=== PATIENT | female | born 1970 | race Caucasian/White ===

== ENCOUNTER → 2017-01-15 | Outpatient (CLI) | payer MEDICARE, MEDICAID ==
--- NOTE | 2017-01-15 17:44 | RAD ---
Abdominal ultrasound complete 01/15/2017 Indication: Right upper quadrant and epigastric pain. Comparison: None. Findings: Visualized pancreatic body within normal limits. Zimmerman scale evaluation of the abdominal aorta and IVC unremarkable. Main portal vein is patent with normal direction of flow measuring 21 cm/s. Common bile duct is normal in size measuring 4 mm. No intra or extrahepatic biliary ductal dilatation Visualized hepatic parenchyma is homogeneous in echotexture without suspicious focal mass or fluid collection. Right kidney is present measuring up to 11.8 cm in length without collecting system dilatation, abnormal perinephric fluid collection or suspicious contour deforming lesion. Left kidney is not as well visualized due to lack of acoustic window measuring up to 11.5 cm in length without collecting system dilatation, though evaluation of contour deforming mass cannot be performed due to limitations. Spleen normal in size measuring 8.8 cm. Prior cholecystectomy. Impression: No sonographic etiology for reported right upper quadrant and epigastric pain.
== END | disposition home or self-care (01) ==
LOC: US 09:36
PROVIDERS: ATTEND General Practice
DX: R10.11 Right upper quadrant pain (principal); R25.2 Cramp and spasm; Z90.49 Acquired absence of other specified parts of digestive tract
CPT/HCPCS: 76700

== ENCOUNTER 2017-02-07 16:44 | Emergency (ER) | payer MEDICARE, MEDICAID ==
[~2017-02-07] VITALS: Ht 154.9 cm; Wt 92.1 kg
[2017-02-07 16:55] VITALS: BP 107/60
[2017-02-07] MEDS ORDERED: PENI500T PO (17:04)
[2017-02-07] MEDS ORDERED: IBUP400T18 PO (17:04)
[2017-02-07] MEDS ORDERED: HYDR-2758 PO (17:04)
--- NOTE | 2017-02-07 17:05 | PHYS DOC ---
Adult General Chief Complaint Chief Complaint: DENTAL PROBLEM HPI HPI 46-year-old female presenting with dental pain in the left upper tooth. It is mild/moderate intermittent nonradiating without alleviating or exacerbating factors. ROS negative for chest pain shortness of breath nausea vomiting fevers chills stridor cyanosis lethargy or drooling. All other review of systems is negative unless otherwise noted in history of present illness. ED course: 46-year-old female presenting to the emergency department today with left dental pain. No evidence of deeper abscess formation. No evidence of peritonsillar abscess. No swelling of the tongue. I recommended patient follow- up with the dentist on Thursday. The patient was prescribed a few oral pain medication and penicillin and subsequent discharged home in stable condition. Review of Systems Review of Systems SEE ABOVE Physical Exam Physical Exam Constitutional: Well developed, well nourished, no acute distress, non-toxic appearance. [] HENT: Normocephalic, atraumatic, bilateral external ears normal, oropharynx moist, no oral exudates, nose normal. [] Generally poor dentition with obvious cavities in the upper back teeth. No stridor or abscess formation. Patient is tolerating secretions without difficulty. Eyes: PERRLA, EOMI, conjunctiva normal, no discharge. [] Neck: Normal range of motion, no tenderness, supple, no stridor. [] Cardiovascular:Heart rate regular rhythm, no murmur [] Lungs & Thorax: Bilateral breath sounds clear to auscultation [] Abdomen: Bowel sounds normal, soft, no tenderness, no masses, no pulsatile masses. [] Skin: Warm, dry, no erythema, no rash. [] Back: No tenderness, no CVA tenderness. [] Extremities: No tenderness, no cyanosis, no clubbing, ROM intact, no edema. [] Neurologic: Alert and oriented X 3, normal motor function, normal sensory function, no focal deficits noted. [] Psychologic: Affect normal, judgement normal, mood normal. [] EKG EKG [] Radiology/Procedures Radiology/Procedures [] Course & Med Decision Making Course & Med Decision Making Pertinent Labs and Imaging studies reviewed. (See chart for details) [] Dragon Disclaimer Dragon Disclaimer This chart was dictated in whole or in part using Voice Recognition software in a busy, high-work load, and often noisy Emergency Department environment. It may contain unintended and wholly unrecognized errors or omissions. Departure Departure: Impression: Primary Impression: Dental cavity Disposition: HOME, SELF-CARE Condition: STABLE Referrals: MERRILL TSAI DO (PCP) Patient Instructions: Dental Pain Additional Instructions: Thank you for allowing us to participate in your care today. Followup with a dentist on Thursday. Call your Primary Doctor tomorrow and inform them of your visit today. If you do not have a primary care provider you can ask for a list of our primary care providers. Return to the emergency department you have any new or concerning findings. This should be evaluated by the primary care physician and any necessary consulting services for continued management within a few days after discharge. Return to emergency room if you have any new or concerning symptoms including but not limited to fever, chills, nausea, vomiting, intractable pain, any new rashes, chest pain, shortness of air, uncontrolled bleeding, difficulty breathing, and/or vision loss. You may have been prescribed medication that can change in your level of thinking and ability to operate machinery. These medications include hydrocodone and Ativan. Also, Benadryl has been known to do this as well. Be sure to check with your pharmacist and ask if the medications you've prescribed can affect your level of consciousness. I recommend not operating heavy machinery or driving while on medication such as these. Scripts Penicillin V Potassium (PENICILLIN V POTASSIUM) 500 Mg Tablet 1 TAB PO BID, #10 TAB 0 Refills Prov: HELIO JACOBSEN MD 02/07/17 Ibuprofen (IBUPROFEN) 400 Mg Tablet 1 TAB PO PRN Q8HRS Y for PAIN, #20 TAB Prov: HELIO JACOBSEN MD 02/07/17 Hydrocodone Bit/Acetaminophen (HYDROCODONE-APAP 5-325 ) 1 Each Tablet 1 TAB PO PRN Q6HRS Y for PAIN, #10 TAB 0 Refills Prov: HELIO JACOBSEN MD 02/07/17 HELIO JACOBSEN MD Feb 07, 2017 17:05
== END 2017-02-07 17:30 | disposition home or self-care (01) ==
LOC: ER 16:44
DX: K02.9 Dental caries, unspecified (principal)
CPT/HCPCS: 99283

== ENCOUNTER → 2018-09-20 | Outpatient (CLI) | payer OTHER, MEDICAID ==
[~2018-09-20] MED LIST: HYDR-2155 PO; IBUP400T18 PO; PENI500T PO
--- NOTE | 2018-09-21 15:18 | RAD ---
DATE: 09/20/2018 EXAM: MAMMO RAUDEL SCREENING BILATERAL HISTORY: Routine screening COMPARISON: 05/01/2017 This study was interpreted with the benefit of Computerized Aided Detection (CAD). Breast Density: SCATTERED The breast parenchyma shows scattered fibroglandular densities. Breast parenchyma level B. FINDINGS: 2-D and 3-D tomosynthesis imaging was performed in CC and MLO projections. No new or enlarging breast densities are seen. No suspicious microcalcifications are evident. IMPRESSION: Stable mammograms without evidence of malignancy. BI-RADS CATEGORY: 1 NEGATIVE RECOMMENDED FOLLOW-UP: 12M 12 MONTH FOLLOW-UP PQRS compliance statement: Patient information was entered into a reminder system with a target due date for the next mammogram. Mammography is a sensitive method for finding small breast cancers, but it does not detect them all and is not a substitute for careful clinical examination. A negative mammogram does not negate a clinically suspicious finding and should not result in delay in biopsying a clinically suspicious abnormality. "Our facility is accredited by the [employer] Mammography Program."
== END | disposition home or self-care (01) ==
LOC: MAMMO 10:31
PROVIDERS: ATTEND Registered Nurse
DX: Z12.31 Encounter for screening mammogram for malignant neoplasm of breast (principal)
CPT/HCPCS: 77063; 77067

== ENCOUNTER → 2018-09-22 | Outpatient (CLI) | payer OTHER, MEDICAID ==
--- NOTE | 2018-09-22 14:43 | RAD ---
EXAM: Left foot, 2 views. HISTORY: Pain after wearing 2 different shoes. COMPARISON: None. FINDINGS: 2 views of the left knee are obtained. There is no fracture, dislocation or subluxation. There is no significant joint effusion. There is minimal medial compartment spurring. There is slight deformity of the lateral aspect of the lateral femoral condyle, possibly projectional or the sequela of remote injury. IMPRESSION: No acute osseous finding. Electronically signed by: Evelyn Gordon MD (09/22/2018 2:40 PM) [facility]
--- NOTE | 2018-09-22 14:49 | RAD ---
EXAM: Cervical spine, 4 views. HISTORY: Pain. COMPARISON: None. FINDINGS: 4 views of the cervical spine are obtained. There is mild cervical kyphosis. There is no listhesis. The vertebral cortez are normal in height. There is anterior predominant endplate remodeling at the mid and lower cervical levels. IMPRESSION: 1. Mild multilevel degenerative change and mild cervical kyphosis. 2. No acute osseous finding. Electronically signed by: Evelyn Gordon MD (09/22/2018 2:47 PM) [place] [id number]
== END | disposition home or self-care (01) ==
LOC: RAD 14:19
PROVIDERS: ATTEND Registered Nurse
DX: M21.862 Other specified acquired deformities of left lower leg (principal); M47.892 Other spondylosis, cervical region; M40.292 Other kyphosis, cervical region
CPT/HCPCS: 72040; 73560

== ENCOUNTER → 2019-07-20 | Outpatient (CLI) | payer OTHER, MEDICAID ==
--- NOTE | 2019-07-20 15:32 | RAD ---
PA and lateral chest x-ray without comparison for cough. FINDINGS: The lungs are clear. The cardiomediastinum is grossly unremarkable. No significant soft tissue or osseous abnormalities are seen. IMPRESSION: 1. No acute cardiopulmonary abnormality. Electronically signed by: Oswaldo Atkins MD (07/20/2019 3:29 PM) [facility]
== END | disposition home or self-care (01) ==
LOC: PMG 14:37
PROVIDERS: ATTEND Registered Nurse
DX: R06.02 Shortness of breath (principal)
CPT/HCPCS: 71046

== ENCOUNTER 2019-11-15 14:53 | Emergency (ER) | payer MEDICARE, MEDICAID ==
[~2019-11-15] VITALS: Ht 154.9 cm; Wt 105.5 kg
[2019-11-15 15:05] VITALS: BP 113/65
[2019-11-15] MEDS ORDERED: LIDOCAINE 2%/EPI 1:100,000 20 ML VIAL. IJ ONE (15:15)
[2019-11-15] MEDS ORDERED: CEPHALEXIN 250 MG CAPSULE PO ONE (15:15)
[2019-11-15] MEDS ORDERED: NEOMY/BACITR/POLYMYXIN OINT PACKET. TP ONE (15:15)
[2019-11-15] MEDS ORDERED: DIPH,PERTUSS(ACELL),TET VAC/PF 0.5 ML SYRINGE. VAX IM ONE (15:30)
[2019-11-15] MEDS ORDERED: CEPH-264 PO (16:45)
--- NOTE | 2019-11-15 16:45 | PHYS DOC ---
Past History Past Medical History: Arthritis, Bipolar, Gallstones, Hypothyroid, Schizophrenia, Other Additional Past Medical Histor: NEUROPATHY Past Surgical History: Cholecystectomy, Smoking: Cigarettes, Less than 1pk/day Additional Smoking Information: PACK/DAY Alcohol Use: None Drug Use: Marijuana General Adult EDM: Chief Complaint: SKIN PROBLEM HPI: HPI: 49 year old female presents with abscess to left buddhism region which has progressed over last 6-7 days. Reports was recently started on Bactrim for a bscess and unrelated UTI. Reports symptoms have continued and worsened despite antibiotic therapy. Denies fever/chills. Denies trauma. Denies . Reports was seen by [facility] with PCP, who instructed patient to present to the ED for evaluation and treatment. Review of Systems: Review of Systems: Constitutional: Denies fever or chills Eyes: Denies redness or discharge HENT: Denies nasal congestion or sore throat Respiratory: Denies cough or shortness of breath Cardiovascular: Denies chest pain or palpitations GI: Denies abdominal pain, nausea, vomiting, or diarrhea : Denies dysuria or hematuria Musculoskeletal: Denies back pain or joint pain Integument: Reports skin lesion to left buddhism with swelling Neurologic: Denies headache, focal weakness or sensory changes Psychiatric: Denies depression or anxiety Complete systems were reviewed and found to be within normal limits, except as documented in this note. Current Medications: Current Meds: Current Medications Medications (Trade) Dose Ordered Sig/Elliott Start Time Stop Time Status Last Admin Dose Admin Cephalexin HCl (Keflex) 500 mg 1X ONCE 11/15/19 15:15 11/15/19 15:16 DC 11/15/19 15:24 500 MG Diphtheria/ Pertussis/Tetanus Vacc (ADACEL TDap SYRINGE) 0.5 ml ONCE ONCE 11/15/19 15:30 11/15/19 15:31 DC 11/15/19 15:33 0.5 ML Lidocaine/ Epinephrine (Xylocaine 2%-Epi 1:100,000) 20 ml 1X ONCE 11/15/19 15:15 11/15/19 15:16 DC 11/15/19 15:15 20 ML Neomycin/ Polymyxin/ Bacitracin (Triple Antibiotic Ointment) 1 pkt 1X ONCE 11/15/19 15:15 11/15/19 15:16 DC 11/15/19 15:25 1 PKT Allergies: Allergies: Allergies Coded Allergies Type Severity Reaction Last Updated Verified haloperidol Allergy Unknown 02/07/17 Yes Physical Exam: PE: Constitutional: Well developed, well nourished, no acute distress, non-toxic appearance HENT: Normocephalic, atraumatic Eyes: Conjunctiva normal, no discharge Neck: Normal range of motion, no tenderness, supple Cardiovascular: Heart rate normal, regular rhythm Lungs & Thorax: No respiratory distress, equal chest rise and fall Skin: Warm, dry, no erythema, no rash, left buddhism abscess measuring 2cm which is fluctuant and tender to palpation concerning for abscess. Extremities: No tenderness, ROM intact, no edema Neurologic: Alert and oriented X 3, normal motor function, normal sensory function, no focal deficits noted Psychologic: Affect normal, judgement normal Current Patient Data: Vital Signs: Vital Signs Date Time Temp Pulse Resp B/P (MAP) Pulse Ox O2 Delivery O2 Flow Rate FiO2 11/15/19 15:05 97.5 90 20 113/65 (81) 96 EKG: EKG: [] Radiology/Procedures: Radiology/Procedures: [] Course & Med Decision Making: Course & Med Decision Making Patient presents with abscess to left buddhism with report of failed outpatient therapy. I&D performed. Wound copiously irrigated. Empiric antibiotic ointment and sterile dressing applied. Patient stable for discharge home with outpatient follow-up with PCP. Discussed findings and plan with patient, who acknowledges understanding and agreement. Mirta Disclaimer: Mirta Disclaimer: This electronic medical record was generated, in whole or in part, using a voice recognition dictation system. Incision and Drainage Incision and Drainage : Blade Size: 11 I & D Procedure: sterile drapes applied, sterile dressing applied Progress Verbal consent obtained. Time out performed. Hand hygiene utilized. Wound cleaned with ChloraPrep. Anesthesia obtained with infiltration of Lidocaine 2% with epi x 3mls via 25g hypodermic needle. 11 blade laceration performed with drainage of purulent material. A curved Palmira clamp then utilized to explore wound and break down any loculations. Wound then copiously irrigated. Finally, wound applied with triple antibiotic ointment and sterile dressing. Patient tolerated procedure well and without difficulty. Departure Departure: Impression: Primary Impression: Abscess of forehead Disposition: 01 HOME/RESIDENCE PRIOR TO ADM Condition: STABLE Referrals: NILAY,WILLOW N [facility]IST-C (PCP) Patient Instructions: Abscess, [id number], Incision and Drainage, Care After Additional Instructions: Do not soak your wound. You may shower. Clean wound daily with soap and water. Change dressing 2 times daily. Use over the counter antibiotic ointment with each dressing change. Scripts Cephalexin (KEFLEX) 500 Mg Capsule 1 CAP PO QID for Abscess for 7 Days, #28 CAP 0 Refills Prov: TOYA UPTON DO 11/15/19 TOYA UPTON DO November 15, 2019 16:45
== END 2019-11-15 16:45 | disposition home or self-care (01) ==
LOC: ER 14:53
DX: L02.01 Cutaneous abscess of face (principal); F17.210 Nicotine dependence, cigarettes, uncomplicated; M19.90 Unspecified osteoarthritis, unspecified site; E03.9 Hypothyroidism, unspecified; F20.9 Schizophrenia, unspecified; Z88.8 Allergy status to other drugs, medicaments and biological substances
CPT/HCPCS: 10060; 90471; 90715; 99283

== ENCOUNTER 2019-12-23 21:12 | Emergency (ER) | payer MEDICARE, MEDICAID ==
[~2019-12-23] VITALS: Ht 154.9 cm; Wt 102.1 kg
[~2019-12-23 21:12] MED LIST changes: +CEPH-264 PO
--- NOTE | 2019-12-23 21:19 | PHYS DOC ---
Past History Past Medical History: Arthritis, Bipolar, Gallstones, Hypothyroid, Pneumonia, Schizophrenia, Other Additional Past Medical Histor: NEUROPATHY Past Surgical History: Cholecystectomy, Smoking: Cigarettes, Less than 1pk/day Alcohol Use: None Drug Use: Marijuana General Adult HPI: HPI: "..I am still sick from the pneumonia ... I had the other day.... I did complete my course of antibiotics.. Amoxicillin.. Oxcillin something... but I am still coughing all the time...My throat is sore.. maybe I need a different antibiotic.. I do smoke.. I know.. I need to quit... " Patient is a 49 year old female who presents with above hx and complaints intractable nonproductive cough. Patient has had increased wheezing. Patient does continue to smoke. Patient recently diagnosed with pneumonia and started and completed a course of antibiotics. 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 No recent travel outside the [place] area. No history immunosuppression. Pt. follows with.. Patient states has had an increased sore throat today. Complacent complaining of history of bronchitis and wheezing. Review of Systems: Review of Systems: Constitutional: Denies fever or chills Eyes: Denies change in visual acuity HENT: Complains of nasal congestion and sore throat Respiratory: Complains of cough and wheezing Cardiovascular: Denies chest pain or edema GI: Denies abdominal pain, nausea, vomiting, bloody stools or diarrhea : Denies dysuria Musculoskeletal: Denies back pain or joint pain Integument: Denies rash Neurologic: Denies headache, focal weakness or sensory changes Endocrine: Denies polyuria or polydipsia Lymphatic: Denies swollen glands Psychiatric: Denies depression or anxiety Heart Score: HEART Score for Chest Pain: HEART Score for Chest Pain Response (Comments) Value History Slighlty/Non-Suspicious 0 ECG Normal 0 Age >45 - < 65 1 Risk Factors 1 or 2 Risk Factors 1 Troponin < Normal Limit 0 Total 2 Risk Factors: Risk Factors: DM, Current or recent (<one month) smoker, HTN, HLP, family history of CAD, obesity. Risk Scores: Score 0 - 3: 2.5% MACE over next 6 weeks - Discharge Home Score 4 - 6: 20.3% MACE over next 6 weeks - Admit for Clinical Observation Score 7 - 10: 72.7% MACE over next 6 weeks - Early Invasive Strategies Family History: Family History: Noncontributory to presentation Current Medications: Current Meds: See nursing for home meds Allergies: Allergies: Allergies Coded Allergies Type Severity Reaction Last Updated Verified haloperidol Allergy Unknown 02/07/17 Yes Physical Exam: PE: Constitutional: , no acute distress, non-toxic appearance. [] HENT: Normocephalic, atraumatic, bilateral external ears normal, oropharynx moist, mild injection of pharynx with postnasal drainage no oral exudates, nose swollen turbinates and clear rhinorrhea Eyes: PERRLA, EOMI, conjunctiva normal, no discharge. [] Neck: Normal range of motion, no tenderness, supple, no stridor. [] Cardiovascular:Heart rate regular rhythm, no murmur [] Lungs & Thorax: Bilateral breath sounds equal with scattered wheezing on auscultation [] Abdomen: Bowel sounds normal, soft, no tenderness, no masses, no pulsatile masses. Obese Skin: Warm, dry, no erythema, no rash. [] Back: No tenderness, no CVA tenderness. [] Extremities: No tenderness, no cyanosis, no clubbing, ROM intact, no edema. [] No cording appreciated Neurologic: Alert and oriented X 3, normal motor function, normal sensory function, no focal deficits noted. [] Psychologic: Affect anxious, judgement normal, mood normal. [] EKG: EKG: Monitor showed a normal sinus rhythm. [] Radiology/Procedures: Radiology/Procedures: [[place] [address] IMAGING REPORT Signed PATIENT: NACHO GRANADO ACCOUNT: [id number] : 1970 LOCATION: ER AGE: 49 SEX: F EXAM STATUS: REG ER ORD. PHYSICIAN: VALENTIN IZQUIERDO MD REASON: pain, dispnea, stridor, poor iv access PROCEDURE: CT ANGIOGRAPHY CHEST CT neck with contrast, CT arteriogram of the chest with contrast. HISTORY: Pain, dyspnea, stridor CT of the neck was done using 75 mL Isovue-370 contrast. Visualized portion of the brain is unremarkable. Sinuses are clear. C-spine is unremarkable. Thyroid is homogeneous. Submandibular nodes are upper normal in size, there is no other adenopathy. Parotid and submandibular glands are unremarkable. There is prominence of the tonsils with symmetric soft tissue swelling. Lingual tonsils are also mildly prominent. Epiglottis is not enlarged. Thyroid is homogeneous. Is also soft tissue swelling of the uvula. IMPRESSION: 1. Soft tissue swelling at the level the tonsils without a focal lesion. 2. Submandibular lymph nodes upper normal in size. 3. No other adenopathy. 4. Soft tissue swelling of the uvula. 5. No other neck mass noted. End impression CT arteriogram of the chest CT arteriogram of the chest was done with the same 75 mL Isovue-370 contrast. Patient's had a cholecystectomy. Visualized portions of liver and spleen are unremarkable. Adrenal glands are normal. There is no pleural effusion. No mediastinal adenopathy. There is a density in the right lower lobe near the diaphragm laterally which measures 7 mm in diameter on the axial images but is more elongated on the coronal measuring 1.4 cm. Focal atelectasis is possible. An atypical nodule is possible. Follow-up in 3 months would be recommended. There is mild dependent atelectasis. There is no other pulmonary nodule. There are no other infiltrates. There are calcified granulomas in the right hilum and mediastinum. Contrast opacification of the pulmonary vessels is not optimal. There is no central pulmonary embolus. IMPRESSION: 1. No central pulmonary embolus. 2. Mild atelectasis without other infiltrates. 3. Focal scarring or atelectasis versus nodule right lower lobe, close interval 3 month follow-up recommended unless there is an old study for comparison ][place] [address] IMAGING REPORT Signed PATIENT: NACHO GRANADO ACCOUNT: [id number] : 1970 LOCATION: ER AGE: 49 SEX: F EXAM STATUS: REG ER ORD. PHYSICIAN: VALENTIN IZQUIERDO MD REASON: cough, fever, hx pneumonia -1 month ago? PROCEDURE: CHEST PA & LATERAL Exam: Chest 2 views INDICATION: Cough, fever TECHNIQUE: Frontal and lateral views the chest Comparisons: 07/20/2019 FINDINGS: The cardiomediastinal silhouette and pulmonary vessels are within normal limits. Mild strandy opacities at the left lung base. No pleural effusion. IMPRESSION: Strandy opacities at the left lung base, likely related to atelectasis. Electronically signed by: Gurdeep Navarrete MD (12/23/2019 10:51 PM) [id number] DICTATED AND SIGNED BY: GURDEEP NAVARRETE MD DATE: 12/23/19 1904 CC: VALENTIN IZQUIERDO MD; SKYLER MIRZA MD ~ Course & Med Decision Making: Course & Med Decision Making Pertinent Labs and Imaging studies reviewed. (See chart for details) Patient gargle Listerine 4 times a day. Patient take pjkx-gst-lytokud Tylenol and ibuprofen. Patient use MDI 2 puffs 4 times a day. Patient encouraged to stop smoking. Patient encouraged to self isolate while she has acute illness. Patient must follow-up with primary care and repeat CT of chest within 3 to 6 months to evaluate right lower lobe atelectasis versus scarring. Patient return if any concerns. Review ED work-up with primary care. Impression: 1. Bronchitis 2. Viral Syndrome 3. Viral Pharyngitis 4. Right lower lobe atelectasis/scarring 5. Elevated Monocytes 10 [] Dragon Disclaimer: Dragon Disclaimer: This electronic medical record was generated, in whole or in part, using a voice recognition dictation system. Departure Departure: Disposition: 01 HOME/RESIDENCE PRIOR TO ADM Condition: STABLE Referrals: SKYLER MIRZA MD (PCP) Scripts Prednisone (PREDNISONE) 50 Mg Tablet 50 MG PO DAILY for inflammation for 3 Days, #3 TAB Prov: VALENTIN IZQUIERDO MD 12/24/19 Justification of Admission: Justification of Admission: Justification of Admission Dx: N/A Dragon Disclaimer This chart was dictated in whole or in part using Voice Recognition software in a busy, high-work load, and often noisy Emergency Department environment. It m ay contain unintended and wholly unrecognized errors or omissions. VALENTIN IZQUIERDO MD Dec 23, 2019 21:19
[2019-12-23] MEDS ORDERED: ALBUTEROL SULFATE 8GM INHALER. INH ONE (22:00)
[2019-12-23 22:21] LABS: INFLUENZA A PATIENT NEGATIVE (NEGATIVE); INFLUENZA B PATIENT NEGATIVE (NEGATIVE)
--- NOTE | 2019-12-23 22:54 | RAD ---
Exam: Chest 2 views INDICATION: Cough, fever TECHNIQUE: Frontal and lateral views the chest Comparisons: 07/20/2019 FINDINGS: The cardiomediastinal silhouette and pulmonary vessels are within normal limits. Mild strandy opacities at the left lung base. No pleural effusion. IMPRESSION: Strandy opacities at the left lung base, likely related to atelectasis. Electronically signed by: Gurdeep Garces MD (12/23/2019 10:51 PM) [id number]
[2019-12-23] MEDS ORDERED: predniSONE 10 MG TABLET PO ONE (23:00)
[2019-12-23] MEDS ORDERED: IV RINGERS SOLUTION,LACTATED 1,000 ML IV SCH (23:00)
[2019-12-23 23:27] LABS: BASO % 1 % (0-3); EOS # 0.1 x10^3/uL (0.0-0.7); EOS % 2 % (0-3); HEMATOCRIT 36.2 % (36.0-47.0); HEMOGLOBIN 12.3 g/dL (12.0-15.5); LYMPH # 2.6 x10^3/uL (1.0-4.8); LYMPH % 42 % (24-48); MEAN CORPUSCULAR HEMOGLOBIN 32 pg (25-35); MEAN CORPUSCULAR HGB CONC 34 g/dL (31-37); MEAN CORPUSCULAR VOLUME 93 fL (79-100); MONO # 0.6 x10^3/uL (0.0-1.1); MONO % 10 % (0-9); NEUT # 2.9 x10^3uL (1.8-7.7); NEUT % 46 % (31-73); PLATELET COUNT 229 x10^3/uL (140-400); RED BLOOD COUNT 3.87 x10^6/uL (3.50-5.40); RED CELL DISTRIBUTION WIDTH 13.2 % (11.5-14.5); WHITE BLOOD COUNT 6.3 x10^3/uL (4.0-11.0)
[2019-12-23 23:34] LABS: CALCIUM 8.8 mg/dL (8.5-10.1); CREATININE 1.1 mg/dL (0.6-1.0); POTASSIUM 3.5 mmol/L (3.5-5.1)
[2019-12-23 23:44] LABS: ALBUMIN 3.3 g/dL (3.4-5.0); DIRECT BILIRUBIN 0.1 mg/dL (0.0-0.2); TOTAL BILIRUBIN 0.4 mg/dL (0.2-1.0); TOTAL PROTEIN 7.1 g/dL (6.4-8.2)
[2019-12-23] MEDS ORDERED: CONTRAST GIVEN MC PRN (23:45)
[2019-12-24] MEDS ORDERED: IOHEXOL 350 MG/ML 100 ML VIAL. IV ONE (00:30)
--- NOTE | 2019-12-24 02:47 | RAD ---
CT neck with contrast, CT arteriogram of the chest with contrast. HISTORY: Pain, dyspnea, stridor CT of the neck was done using 75 mL Isovue-370 contrast. Visualized portion of the brain is unremarkable. Sinuses are clear. C-spine is unremarkable. Thyroid is homogeneous. Submandibular nodes are upper normal in size, there is no other adenopathy. Parotid and submandibular glands are unremarkable. There is prominence of the tonsils with symmetric soft tissue swelling. Lingual tonsils are also mildly prominent. Epiglottis is not enlarged. Thyroid is homogeneous. Is also soft tissue swelling of the uvula. IMPRESSION: 1. Soft tissue swelling at the level the tonsils without a focal lesion. 2. Submandibular lymph nodes upper normal in size. 3. No other adenopathy. 4. Soft tissue swelling of the uvula. 5. No other neck mass noted. End impression CT arteriogram of the chest CT arteriogram of the chest was done with the same 75 mL Isovue-370 contrast. Patient's had a cholecystectomy. Visualized portions of liver and spleen are unremarkable. Adrenal glands are normal. There is no pleural effusion. No mediastinal adenopathy. There is a density in the right lower lobe near the diaphragm laterally which measures 7 mm in diameter on the axial images but is more elongated on the coronal measuring 1.4 cm. Focal atelectasis is possible. An atypical nodule is possible. Follow-up in 3 months would be recommended. There is mild dependent atelectasis. There is no other pulmonary nodule. There are no other infiltrates. There are calcified granulomas in the right hilum and mediastinum. Contrast opacification of the pulmonary vessels is not optimal. There is no central pulmonary embolus. IMPRESSION: 1. No central pulmonary embolus. 2. Mild atelectasis without other infiltrates. 3. Focal scarring or atelectasis versus nodule right lower lobe, close interval 3 month follow-up recommended unless there is an old study for comparison PQRS Compliance Statement: One or more of the following individualized dose reduction techniques were utilized for this examination: 1. Automated exposure control 2. Adjustment of the mA and/or kV according to patient size 3. Use of iterative reconstruction technique Electronically signed by: Lon Rolon MD (12/24/2019 2:44 AM) [id number]
[2019-12-24 03:11] VITALS: BP 110/70
[2019-12-24] MEDS ORDERED: PRED50TA PO (03:20)
== END 2019-12-24 03:22 | disposition home or self-care (01) ==
LOC: ER 21:12
DX: J40 Bronchitis, not specified as acute or chronic (principal); B34.9 Viral infection, unspecified; J02.8 Acute pharyngitis due to other specified organisms; B97.89 Other viral agents as the cause of diseases classified elsewhere; D72.821 Monocytosis (symptomatic); M19.90 Unspecified osteoarthritis, unspecified site; E03.9 Hypothyroidism, unspecified; F20.9 Schizophrenia, unspecified; F17.210 Nicotine dependence, cigarettes, uncomplicated; Z88.8 Allergy status to other drugs, medicaments and biological substances
CPT/HCPCS: 36415; 70491; 71046; 71275; 80048; 80076; 82550; 84443; 84484; 85025; 87070; 87804; 87880; 94640; 99285; J7120; J7512; J7613; Q9967; 94664

== ENCOUNTER 2020-01-30 10:29 | Emergency (ER) | payer MEDICARE, MEDICAID ==
[~2020-01-30] VITALS: Ht 154.9 cm; Wt 105.4 kg
[~2020-01-30 10:29] MED LIST changes: +PRED50TA PO
[2020-01-30] MEDS ORDERED: SMZ/TMP 800/160MG TABLET. PO ONE (11:30)
[2020-01-30] MEDS ORDERED: LIDOCAINE 2%/EPI 1:100,000 20 ML VIAL. IJ ONE (11:30)
--- NOTE | 2020-01-30 12:29 | PHYS DOC ---
Past History Past Medical History: Bipolar, Hypothyroid Additional Past Medical Histor: KATHRYN Past Surgical History: Cholecystectomy Smoking: Cigarettes, Less than 1pk/day Alcohol Use: None Drug Use: None, Marijuana General Adult EDM: Chief Complaint: ABSCESS HPI: HPI: 49 year old female presents with history of right axillary abscess x 1 week. Repots seen at Dr. Mirza's office 3 days ago and started on antibiotics (Keflex). Reports abscess had decreased in size but still is red, painful, and swollen. Denies fever/chills. Denies trauma. Review of Systems: Review of Systems: Constitutional: Denies fever or chills Eyes: Denies change in visual acuity, redness, or eye pain HENT: Denies nasal congestion or sore throat Respiratory: Denies cough or shortness of breath Cardiovascular: Denies chest pain or palpitations GI: Denies abdominal pain, nausea, vomiting, or diarrhea : Denies dysuria or hematuria Musculoskeletal: Denies back pain or joint pain Integument: Reports abscess to right axilla with redness and swelling Neurologic: Denies headache, focal weakness or sensory changes Complete systems were reviewed and found to be within normal limits, except as documented in this note. Current Medications: Current Meds: Current Medications Medications (Trade) Dose Ordered Sig/Elliott Start Time Stop Time Status Last Admin Dose Admin Lidocaine/ Epinephrine (Xylocaine 2%-Epi 1:100,000) 20 ml 1X ONCE 01/30/20 11:30 01/30/20 11:31 DC Trimethoprim/ Sulfamethoxazole (Bactrim Ds) 2 tab 1X ONCE 01/30/20 11:30 01/30/20 11:31 DC 01/30/20 11:29 2 TAB Allergies: Allergies: Allergies Coded Allergies Type Severity Reaction Last Updated Verified haloperidol Allergy Unknown 02/07/17 Yes Physical Exam: PE: Constitutional: Well developed, well nourished, no acute distress, non-toxic appearance HENT: Normocephalic, atraumatic Eyes: Conjunctiva normal, no discharge Neck: Normal range of motion, supple Lungs & Thorax: Equal chest rise and fall, no respiratory distress Skin: Warm, dry, erythema and swelling to right axilla consistent for abscess Extremities: No tenderness, ROM intact, no edema Neurologic: Alert and oriented X 3, no focal deficits noted Psychologic: Affect normal, judgement normal Current Patient Data: Vital Signs: Vital Signs Date Time Temp Pulse Resp B/P (MAP) Pulse Ox O2 Delivery O2 Flow Rate FiO2 01/30/20 10:51 97.8 85 18 127/80 (96) 97 Room Air EKG: EKG: [] Radiology/Procedures: Radiology/Procedures: [] Course & Med Decision Making: Course & Med Decision Making Patient presents with HPI and physical exam consistent for right axillary abscess. Patient currently on antibiotic therapy and reports some improvement of size of abscess but with continued pain, redness, and swelling. I&D performed and dressing applied. Wound Cx pending. Patient to continue previously prescribed antibiotic therapy in addition to Bactrim. Rx written. Patient stable for discharge home with outpatient follow-up with PCP. Discussed findings and plan with patient, who acknowledges understanding and agreement. Mirta Disclaimer: Mirta Disclaimer: This electronic medical record was generated, in whole or in part, using a voice recognition dictation system. Incision and Drainage Incision and Drainage : Site: Right axillary abscess Blade Size: 11 I & D Procedure: sterile dressing applied, gauze wick placed Progress Verbal consent obtained from patient. Hand hygiene utilized. Time out performed. Area cleaned with ChloraPrep. Anesthesia obtained with injection of Lidocaine 2% with epi x 3mls via 25 gauge hypodermic needle. Incision made with 11 blade scalpel. Purulent drainage expressed. Wound culture obtained. Curved Palmira clamp utilized to breakdown loculations. Wound copiously irrigated. Wound packing placed (1/2 inch iodoform gauze) and sterile dressing applied. Patient tolerated procedure well and without difficulty. Departure Departure: Impression: Primary Impression: Abscess Disposition: 01 HOME/RESIDENCE PRIOR TO ADM Condition: STABLE Referrals: SKYLER MIRZA MD (PCP) Patient Instructions: Abscess, [id number], Incision and Drainage, Care After Additional Instructions: Continue use of previously prescribed antibiotic Remove packing in 24 hours. Do not soak your wound. You may shower. Clean wound daily with soap and water. Change dressing 2 times daily. Use over the counter antibiotic ointment with each dressing change. Scripts Sulfamethoxazole/Trimethoprim (BACTRIM DS TABLET) 1 Each Tablet 2 TAB PO BID for abscess for 7 Days, #28 TAB 0 Refills Prov: TOYA UPTON DO 01/30/20 Hydrocodone Bit/Acetaminophen (NORCO 5-325 TABLET) 1 Each Tablet 0.5-1 TAB PO PRN Q6HRS PRN for PAIN, #10 TAB 0 Refills Prov: TOYA UPTON DO 01/30/20 Justification of Admission: Justification of Admission: Justification of Admission Dx: N/A TOYA UPTON DO Jan 30, 2020 12:29
[2020-01-30] MEDS ORDERED: ACETAMINOPHEN/CODEINE 300/30MG TABLET PO ONE (12:30)
[2020-01-30] MEDS ORDERED: traMADol 50 MG TABLET PO ONE (12:30)
[2020-01-30] MEDS ORDERED: HYDR-3165 PO (12:38)
[2020-01-30] MEDS ORDERED: SULF1TAB24 PO (12:39)
[2020-01-30 12:43] VITALS: BP 142/95
== END 2020-01-30 12:46 | disposition home or self-care (01) ==
LOC: ER 10:29
DX: L02.411 Cutaneous abscess of right axilla (principal); E03.9 Hypothyroidism, unspecified; F17.210 Nicotine dependence, cigarettes, uncomplicated; Z88.8 Allergy status to other drugs, medicaments and biological substances
CPT/HCPCS: 10060; 87070; 87077; 87186; 99283

== ENCOUNTER → 2020-08-10 | Outpatient (CLI) | payer MEDICARE, MEDICAID ==
[~2020-08-10] MED LIST changes: +HYDR-3165 PO; +SULF1TAB24 PO
--- NOTE | 2020-08-10 13:35 | RAD ---
CT THORAX WO INDICATION: ABNORMAL CXR COMPARISON STUDY: CTA and chest radiograph dated 12/23/2019. TECHNIQUE: Unenhanced axial images were obtained through the lungs and upper abdomen. Coronal and sa gittal multiplanar reconstructions were also obtained. PQRS compliance statement: One or more of the following individualized dose reduction techniques were utilized for this examinat ion: 1. Automated exposure control 2. Adjustment of the mA and/or kV according to patient size 3. Use of iterative reconstruction technique FINDINGS: Lungs and Airways: Stable right lower lobe opacity with elongate morphology. Paraseptal emphysema. No rmal central airways. Pleura: The pleural spaces are normal. Heart and Mediastinum: The visualized thyroid gland is normal in size and attenuation. No axillary or supraclavicular lymphadenopathy. No mediastinal, hilar or retrocrural lymphadenopathy. Calcified med iastinal and right hilar lymph nodes consistent with remote granulomatous disease. Normal cardiac siz e. Coronary artery atherosclerotic disease. The great vessels of the thorax are normal. Abdomen: Cholecystectomy. Calcified hepatic and splenic granulomas. Bones and Soft Tissues: Degenerative changes spine. Fat-containing ventral abdominal wall hernia. IMPRESSION: 1. Stable right lower lobe opacity with elongate morphology, suspect a process such as endobronchial mucoid impaction. Consider additional 12-18 month follow-up to establish long-term stability. 2. Coronary artery atherosclerotic disease. Electronically signed by: Issa Chopra MD (08/10/2020 1:33 PM) [id number]
== END ==
LOC: CT 11:32
PROVIDERS: ATTEND Internal Medicine Pulmonary Disease
DX: J43.9 Emphysema, unspecified (principal); I25.10 Atherosclerotic heart disease of native coronary artery without angina pectoris; K43.9 Ventral hernia without obstruction or gangrene; K75.3 Granulomatous hepatitis, not elsewhere classified
CPT/HCPCS: 71250

== ENCOUNTER → 2021-01-03 | Outpatient (CLI) | payer MEDICARE, MEDICAID ==
--- NOTE | 2021-01-03 19:34 | RAD ---
Examination: PA view the chest with left RIBS HISTORY: History of injury COMPARISON: None available FINDINGS: The cardiomediastinal silhouette grossly appears unremarkable. There is questionable faint lucency id entified in the left lateral portion of the seventh or eighth rib likely nondisplaced fracture. IMPRESSION: Questionable faint lucency identified in the left lateral portion of the seventh or eighth rib likely nondisplaced fracture. Electronically signed by: Dm Maynard MD (01/03/2021 7:32 PM) [id number]
== END ==
LOC: RAD 18:48
PROVIDERS: ATTEND Nurse Practitioner Family
DX: S29.9XXA Unspecified injury of thorax, initial encounter (principal); Y09 Assault by unspecified means; Y93.89 Activity, other specified; Y92.89 Other specified places as the place of occurrence of the external cause; Y99.8 Other external cause status
CPT/HCPCS: 71101

== ENCOUNTER → 2021-03-29 | Outpatient (CLI) | payer MEDICARE, MEDICAID ==
[~2021-03-29] MED LIST changes: +ALBUTEROL INH; +ATOR20TA58 PO; +BENZ-8 PO; +BUPR150T11 PO; +CELE200C PO; +GABA-586 PO; +LEVO88TA4 PO; +TOPI50TA8 PO; +abilify
== END ==
LOC: LAB 13:22
PROVIDERS: ATTEND Internal Medicine Gastroenterology
DX: Z01.812 Encounter for preprocedural laboratory examination (principal); Z20.822 Contact with and (suspected) exposure to COVID-19; F45.8 Other somatoform disorders
CPT/HCPCS: U0003

== ENCOUNTER → 2021-05-31 | Outpatient (CLI) | payer MEDICARE, MEDICAID | LOC: LAB 11:48 | PROVIDERS: ATTEND Internal Medicine Gastroenterology | DX: Z01.812 Encounter for preprocedural laboratory examination (principal); Z20.822 Contact with and (suspected) exposure to COVID-19; R09.89 Other specified symptoms and signs involving the circulatory and respiratory systems | CPT/HCPCS: U0003 ==

== ENCOUNTER → 2021-06-04 | Day surgery (SDC) | payer MEDICARE, MEDICAID ==
[~2021-06-04] MED LIST changes: +KETAMINE HCL IN NACL, ISO-OSM 50 MG/5 ML SYRINGE ONE; +LIDOCAINE 2% PF 5 ML VIAL. ONE; +PROPOFOL 0 ML IV ONE; +PROPOFOL 10,000 MCG/ML (20ML) VIAL IV ONE
[2021-06-04 11:15] LABS: U PREG PATIENT NEGATIVE (NEG)
[2021-06-04 13:09] VITALS: BP 105/73
== END | disposition home or self-care (01) ==
LOC: SURG 10:48
PROVIDERS: ATTEND Internal Medicine Gastroenterology
DX: F45.8 Other somatoform disorders (principal); K21.9 Gastro-esophageal reflux disease without esophagitis; K31.89 Other diseases of stomach and duodenum; E66.01 Morbid (severe) obesity due to excess calories; G47.30 Sleep apnea, unspecified; E03.9 Hypothyroidism, unspecified; E78.5 Hyperlipidemia, unspecified; F17.210 Nicotine dependence, cigarettes, uncomplicated; Z79.899 Other long term (current) drug therapy; Z98.890 Other specified postprocedural states; Z88.8 Allergy status to other drugs, medicaments and biological substances
CPT/HCPCS: 43239; 81025; J2001; J2704